=== PATIENT | female | born 1965 | race Caucasian/White ===

== ENCOUNTER 2016-07-22 19:52 | Emergency (ER) | payer BC ==
[~2016-07-22] VITALS: Ht 162.6 cm; Wt 76.5 kg
[~2016-07-22 19:52] MED LIST: XANA0.5T PO; ZOLP1TAB32 PO; [UNRECOGNIZED DRUG - REMARK]
[2016-07-22 20:05] VITALS: BP 120/78; PULSE 72; RESP 16; TEMP 98.7; O2SAT 96
[2016-07-22] MEDS ORDERED: ALPR.5 PO (20:18)
[2016-07-22] MEDS ORDERED: TRIGLYCERIDE PO (20:18)
[2016-07-22] MEDS ORDERED: AMBI5TAB PO (20:18)
[2016-07-22] MEDS ORDERED: AUGM875T PO (20:22)
[2016-07-22] MEDS ORDERED: IBUP800T23 PO (20:22)
--- NOTE | 2016-07-22 20:22 | PD ---
HPI . facial swelling x 1 day Chief Complaint: Oral / Dental Pain or Problem Time Seen by Provider: 20:18 Travel History International Travel<30 days: No Contact w/Intl Traveler<30days: No Traveled to known affect area: No History of Present Illness HPI 51-year-old female here with complaints of dental problems for about one day. Patient has some tooth issues and knows that she needs to see a dentist and has an appointment next week. All of a sudden yesterday her cheek started swelling and she decided to come to the ED for further evaluation. Reports pain on the upper left jaw and cheek. She denies any fever or chills. She has no other concerns. PFSH Past Medical History Anxiety: Yes High Cholesterol: Yes Diminished Hearing: No Gastrointestinal Disorders: Yes (CROHNS ) Genitourinary: Yes (overactive bladder) Kidney Stones: Yes Immunizations Current: Yes Triglycerides - High: Yes (ON MEDS) Tetanus Vaccination: < 5 Years Influenza Vaccination: No ?: Not : 2 Para: 2 Tubal Ligation: Yes (1985) Past Surgical History Gynecologic Surgery: Yes ( LINING OF UTERUS REMOVED AND TUBAL ) Hysterectomy: Yes Social History Alcohol Use: Yes (occas. beer) Tobacco Use: Yes (1 PPD) Substance Use: No Allergies-Medications (Allergen,Severity, Reaction): Coded Allergies: No Known Allergies (Verified , 07/22/16) Reported Meds & Prescriptions Reported Meds & Active Scripts Active Ibuprofen 800 Mg Tab 800 Mg PO TID Augmentin (Amoxicillin-Clavulanate) 875-125 mg Tab 875 Mg PO BID not for use in CrCl <30 ml/min. Reported [triglyceride] 1 Tab PO HS Xanax (Alprazolam) 0.5 Mg Tab 0.5 Mg PO TID PRN Ambien (Zolpidem Tartrate) 5 Mg Tab 5 Mg PO HS PRN Review of Systems General / Constitutional: No: Fever Eyes: No: Visual changes HENT: Positive: Dental Difficulties, No: Headaches Cardiovascular: No: Chest Pain or Discomfort Respiratory: No: Shortness of Breath Gastrointestinal: No: Abdominal Pain Genitourinary: No: Dysuria Musculoskeletal: No: Pain Skin: No Rash Neurologic: No: Weakness Psychiatric: No: Depression Endocrine: No: Polydipsia Hematologic/Lymphatic: No: Easy Bruising Physical Exam Narrative GENERAL: AAO x 3, no acute distress, Well-nourished, well-developed patient. SKIN: Warm and dry. No visible rashes or bruising. HEAD: Normocephalic and atraumatic. EYES: No scleral icterus. No injection or drainage. ENT: No nasal drainage noted. Mucous membranes pink. Airway patent. Left cheek swelling. No abscess formation in the mouth. There is some erythema on the inner cheek. #15 appears broken and rotting. She does have dental caries. NECK: Supple, trachea midline. No JVD. CARDIOVASCULAR: Regular rate and rhythm without murmurs, gallops, or rubs. RESPIRATORY: Breath sounds equally diminished bilaterally. No accessory muscle use. No rhonchi or rales. GASTROINTESTINAL: Abdomen soft, non-tender, nondistended. EXTREMITIES: No cyanosis or edema. BACK: Nontender without obvious deformity. No CVA tenderness. PSYCH: AAO x 3, normal affect. Data Data Last Documented VS Vital Signs Date Time Temp Pulse Resp B/P Pulse Ox O2 Delivery O2 Flow Rate FiO2 07/22/16 20:05 98.7 72 16 120/78 96 MDM Medical Decision Making Medical Screen Exam Complete: Yes Emergency Medical Condition: Yes Differential Diagnosis Dental caries, gingivitis, early oral abscess formation Narrative Course 51-year-old female here with complaints of dental problems for about one day. Patient has some tooth issues and knows that she needs to see a dentist and has an appointment next week. All of a sudden yesterday her cheek started swelling and she decided to come to the ED for further evaluation. Reports pain on the upper left jaw and cheek. She denies any fever or chills. She has no other concerns. Patient seen and examined. She does have dental caries and what appears to be some cellulitis of the soft tissues of the mouth. There is no definitive abscess formation. Recommend course of antibiotics. Ibuprofen for pain. She will need to see dentist as soon as possible. Patient verbalized understanding of instructions, questions were answered, and thanked me for their care. I advised them if their condition worsens, please return to the nearest emergency room for further care. Diagnosis Primary Impression: Cellulitis of oral soft tissues Patient Instructions: Cellulitis (ED), Dental Caries (DC), General Instructions Additional Instructions: Please return to emergency department if your symptoms return or worsen. Follow up with your primary care provider. Take medications as prescribed. As we discussed, you will need to have these teeth examined and will more than likely require extraction. Please follow-up with the dentist as soon as possible. Try salt water gargles daily. Use ice on the side of your face to reduce swelling and inflammation. Deary for worsening signs of infection which include increased redness, increased warmth, purulent drainage, increased swelling or streaking. Use ibuprofen for pain relief. Med/Other Pt SpecificInfo: Prescription(s) given Scripts Ibuprofen 800 Mg [id number] Mg PO TID #20 TAB Prov:Brandon Larkin MD 07/22/16 Amoxicillin-Clavulanate (Augmentin)875-125 mg [id number] Mg PO BID #20 TAB not for use in CrCl <30 ml/min. Prov:Brandon Larkin MD 07/22/16 Disposition: 01 DISCHARGE HOME Condition: Stable Julissa Garrison Jul 22, 2016 20:22
== END 2016-07-22 20:50 | disposition home or self-care (01) ==
LOC: PHEFT 19:52
DX: K12.2 Cellulitis and abscess of mouth (principal); E78.00 Pure hypercholesterolemia, unspecified; F17.210 Nicotine dependence, cigarettes, uncomplicated
CPT/HCPCS: 99283